=== PATIENT | female | born 1990 | race Caucasian/White ===

== ENCOUNTER 2017-02-02 13:57 | Emergency (ER) | payer OTHER ==
[~2017-02-02] VITALS: Ht 157.5 cm; Wt 111.2 kg
[2017-02-02 14:16] VITALS: BP 121/61
--- NOTE | 2017-02-02 15:25 | NUR ---
PT AMBULATED TO BED 6.
--- NOTE | 2017-02-02 15:30 | NUR ---
26F BIB FAMILY C/O INTERMITTENT VAGAINAL SPOTTING X 3 DAYS; PT STATES HAS LIGHT SPOTTING, BUT NOT USING TAMPONS AT THIS TIME; PT STATES HAS INTERMITTENT LOWER BACK CRAMPING FOR 3 DAYS, RADIATES TO LOWER ABDOMEN BUT STATES HAS NO PAIN OR DISCOMFORT AT THIS TIME; PT C/O NAUSEA, BUT STATES NO VOMITING OR DIARRHEA AT THIS TIME TIME; ABDOMEN SOFT, NON-TENDER, ACTIVE BOWEL SOUNDS X 4 QUADRANTS; PT AA&OX4, PERRLA, BL LUNG SOUNDS CLEAR, RR EVEN/UNLABORED, SKIN IS WARM/DRY/INTACT AT THIS TIME; STEADY GAIT; PT RESTING IN BED WITH HOB ELEVATED AND IN LOWEST POSITION; POSITIONED FOR COMFORT; ER MD MADE AWARE OF STATUS. WILL CONTINUE TO MONITOR.
--- NOTE | 2017-02-02 15:33 | NUR ---
ER MD DR. FULLER EVALUATING PT AT BEDSIDE.
--- NOTE | 2017-02-02 15:52 | NUR ---
BEAN VALERA CHAPERONED ER MD DR. FULLER FOR FEMALE PELVIC EXAM.
[2017-02-02 16:03] LABS: BASOPHILS # (AUTO) 0.7 K/uL (0.00-0.22); EOSINOPHILS # (AUTO) 0.1 K/uL (0-0.4); HEMATOCRIT 40.6 % (36-48); LYMPHOCYTES # (AUTO) 3.2 K/uL (2.5-16.5); MEAN CORPUSCULAR HEMOGLOBIN 30 pg (27-31); MEAN CORPUSCULAR HGB CONC 34 g/dL (33-37); MEAN CORPUSCULAR VOLUME 86 fL (80-94); MONOCYTES # (AUTO) 0.6 K/uL (0.8-1.0); NEUTROPHILS # (AUTO) 4.2 K/uL (1.8-7.7); PLATELET COUNT (AUTO) 301 K/uL (140-450); RED CELL DISTRIBUTION WIDTH 12.9 % (11.6-13.7); WHITE BLOOD COUNT (AUTO) 8.8 K/uL (4.8-10.8)
[2017-02-02 16:20] LABS: BILIRUBIN,URINE NEGATIVE (NEGATIVE); BLOOD, URINE NEGATIVE (NEGATIVE); LEUKOCYTE ESTERASE ,URINE NEGATIVE (NEGATIVE); NITRITE, URINE NEGATIVE (NEGATIVE); PH,URINE 5.5 (5.0-9.0); UGLUCOSE NEGATIVE (NEGATIVE)
[2017-02-02 16:23] LABS: APPEARANCE,URINE CLEAR (CLEAR); COLOR,URINE YELLOW (YELLOW)
--- NOTE | 2017-02-02 16:28 | NUR ---
US AT BEDSIDE.
--- NOTE | 2017-02-02 17:37 | NUR ---
RHOGAM 300MCG GIVEN TO LT DELTOID IM, PT TOLERATED WELL NO DRUG ADVERSE REACTION. LOT#[id number] EXP. 11/20/2018
[2017-02-02 17:45] VITALS: BP 121/61
--- NOTE | 2017-02-02 17:46 | NUR ---
Patient discharged with v/s stable. Written and verbal after care instructions given and explained. Patient verbalized understanding. Ambulatory with steady gait. All questions addressed prior to discharge. Advised to follow up with PMD.
== END 2017-02-02 17:46 | disposition home or self-care (01) ==
LOC: MED 13:57
DX: O20.0 Threatened abortion (principal); Z3A.01 Less than 8 weeks gestation of pregnancy; Z71.6 Tobacco abuse counseling
CPT/HCPCS: 36415; 76817; 81003; 84702; 85025; 86886; 86900; 86901; 99285; J2790; Q0092

== ENCOUNTER 2018-03-22 12:24 | Emergency (ER) | payer OTHER ==
[~2018-03-22] VITALS: Ht 160 cm; Wt 110.8 kg
[2018-03-22 13:41] VITALS: BP 144/78
--- NOTE | 2018-03-22 13:44 | NUR ---
AFTER PROVIDING URINE SAMPLE, PT AMBULATES BACK TO THE LOBBY
--- NOTE | 2018-03-22 15:16 | NUR ---
PATIENT PRESENTS TO ED WITH C/O DIZZINESS WITH SUDDEN MOVEMENTS X TODAY DENIES INJURY/TRAUMA---DENIES N/V/D TODAY BUT ADMITS X 1 EMESIS LAST NIGHT ADDS SON WITH N/V YESTERDAY FULL CLEAR SPEECH, NO FACIAL ASYMMETRY NOTED, AMBULATORY WITH STEADY GAIT, MOVING ALL EXTREMITIES EQUALLY ALSO CONCERNED OVER NO MENSTRUAL CYCLE >5 MONTHS IN WHICH SHE HAS GIVEN 5 MONTHS AGO DENIES N/V/D; SKIN IS PINK/WARM/DRY; AAOX4 WITH EVEN AND STEADY GAIT; LUNGS CLEAR BL; HR EVEN AND REGULAR; PT DENIES ANY FEVER, CP, SOB, OR COUGH AT THIS TIME; PATIENT STATES PAIN OF 0/10 AT THIS TIME; VSS; PATIENT POSITIONED FOR COMFORT; HOB ELEVATED; BEDRAILS UP X2; BED DOWN. ER MD MADE AWARE OF PT STATUS.
[2018-03-22] MEDS ORDERED: MECLIZINE 25 MG TAB PO ONE (16:00)
[2018-03-22] MEDS ORDERED: NACL 0.9% 1,000 ML IV ONE (16:00)
--- NOTE | 2018-03-22 16:13 | NUR ---
PT TO CT VIA [facility]
[2018-03-22 16:22] LABS: BASOPHILS % (AUTO) 0.4 % (0.0-2.0); EOSINOPHILS % (AUTO) 0.5 % (0.0-4.0); HEMATOCRIT 43.4 % (36-48); HEMOGLOBIN 14.9 g/dL (12.0-16.0); LYMPHOCYTES # (AUTO) 2.6 K/uL (2.5-16.5); LYMPHOCYTES % (AUTO) 35.8 % (20.5-51.1); MEAN CORPUSCULAR HEMOGLOBIN 30 pg (27-31); MEAN CORPUSCULAR HGB CONC 35 g/dL (33-37); MEAN CORPUSCULAR VOLUME 86.5 fL (80-94); MONOCYTES # (AUTO) 0.4 K/uL (0.8-1.0); MONOCYTES % (AUTO) 5.2 % (1.7-9.3); NEUTROPHILS # (AUTO) 4.2 K/uL (1.8-7.7); NEUTROPHILS % (AUTO) 58.1 % (42.2-75.2); PLATELET COUNT (AUTO) 285 K/uL (140-450); RED BLOOD CELL COUNT(AUTO) 5.01 MIL/uL (4.20-5.40); RED CELL DISTRIBUTION WIDTH 12.6 % (11.6-13.7); WHITE BLOOD COUNT (AUTO) 7.2 K/uL (4.8-10.8)
--- NOTE | 2018-03-22 16:28 | NUR ---
returned from ct
[2018-03-22 16:45] LABS: ANION GAP 13.3 (8-16); CARBON DIOXIDE 28.5 mmol/L (21-32); CREATININE 0.8 mg/dL (0.6-1.3); POTASSIUM 3.8 mmol/L (3.5-5.1)
[2018-03-22 17:01] LABS: ALBUMIN 4.1 g/dL (3.4-5.0); TOTAL BILIRUBIN 0.4 mg/dL (0.0-1.0)
[2018-03-22] MEDS ORDERED: KETOROLAC 30 MG/ML VIAL IVP ONE (17:40)
[2018-03-22 18:28] VITALS: BP 102/52
--- NOTE | 2018-03-31 08:48 | NUR ---
Late entry confirmed from nurse that 1000 ml 0.9NS was administered and completed in 1 hour at 1756.
== END 2018-03-22 18:28 | disposition home or self-care (01) ==
LOC: MED 12:24
DX: R51 Headache (principal); R11.10 Vomiting, unspecified; R42 Dizziness and giddiness
CPT/HCPCS: 36415; 70450; 80053; 81002; 81025; 84702; 85025; 93005; 96361; 96374; 99284; J1885; J7030; J8597